=== PATIENT | male | born 1945 | race Caucasian/White ===

== ENCOUNTER → 2024-01-16 | Outpatient (CLI) | payer MEDICARE, OTHER ==
--- NOTE | 2024-01-16 11:36 | CA ---
Exercise Stress Test Report Name: Feroz Dean Exam Date: 01/16/2024 09:40 Exam Location: [place] Stress Ht (in): 73 Wt (lb): 190 BSA: 2.11 Ordering Phys: Augusto Brooke MD Referring Phys: Augusto Brooke MD Technologist: Robbie Roche Age: 78 Gender: M : 1945 Procedure CPT: Indications: R94.39 ABNORMAL CARDIOVASCULAR FUNCTION STUDY ICD-10 Codes: Patient History: HTN, ELEVATED CHOLESTEROL LEVELS, PRIOR CATH, FORMER SMOKER Medications: ATORVASTATIN, AMLODIPINE, VIT D3, TAMSULOSIN Meds past 24 hrs: Pretest Chest Pain: STRESS TEST Jovani Protocol Exercise Duration (min:sec): 07:[address] Depressions (mm): Angina Score: Simental Score: Resting HR (bpm): 71 Peak HR (bpm): 124 Resting BP (mmHg): 173 / 83 Peak BP (mmHg): 214 / 75 MPHR: 141 Target HR: 120 % MPHR: 88 METS: 9.1 Total Dose: Peak Dose: Atropine: Double Product: 63108 BP Response: Stress Termination: MAX EXERTION/TARGET HR Stress Symptoms: NO SYMPTOMS Stress Summary: ECG ANALYSIS Resting ECG: Normal sinus rhythm, LVH by voltage criteria, Stress EC mm ST depressions in inferolateral leads during peak stress CONCLUSIONS Good exercise tolerance for age achieving 9.1 METS Hypertensive at baseline SBP 173 mmHg on admission. Abnormal ECG response, cannot rule out ischemia. Could be related to left ventricular hypertrophy. Overall abnormal treadmill stress Dr Jaime Ngo (Electronically Signed) Final Date: 16 January 2024 11:35
--- NOTE | 2024-01-16 15:00 | NM ---
EXAMINATION TYPE: NM stress cardiolite complete DATE OF EXAM: 01/16/2024 COMPARISON: NONE CLINICAL INDICATION: Male, 78 years old with history of R94.39 ABNORMAL CARDIOVASCULAR FUNCTION STUDY ; TECHNIQUE: After the intravenous administration of 10.3 mCi Tc 99m Sestamibi - Rest images obtained 70 minutes post injection. The patient exercised using a CAREY protocol and 1 minute prior to peak exercise was injected with 25.4 mCi Tc 99m Sestamibi - Stress images obtained 15 minutes post injecti on. FINDINGS: Targeted heart rate was achieved during performance of the study. Review of stress and rest SPECT trevon ges demonstrates no distinct perfusion abnormality. Gated analysis shows normal wall motion with an estimated left ventricular ejection fraction of 67 %. IMPRESSION: No scintigraphic evidence for reversible ischemia
== END | disposition home or self-care (01) ==
LOC: RADNMMAIN 07:49
PROVIDERS: ATTEND Internal Medicine
DX: R94.39 Abnormal result of other cardiovascular function study (principal); I10 Essential (primary) hypertension; E78.00 Pure hypercholesterolemia, unspecified
CPT/HCPCS: 93017; 78452; A9500